=== PATIENT | female | born 1990 | race Caucasian/White ===

== ENCOUNTER 2020-09-04 07:10 | Observation (INO) ==
--- NOTE | 2020-09-01 14:18 | Anesthesiology Consultation ---
Date of Service September 01, 2020 Assessment & Plan (1) Encounter for pre-operative examination: ADDRESS PATIENT "PATRIC". 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 Patient instructed that they and their household members must follow strict social distancing guidelines, wear a mask in public and avoid travel/events/gatherings for 14 days prior to surgery. Preoperative COVID19 testing completed 08/31 at [facility], results NEGATIVE. Patient made aware to self-isolate as much as possible between COVID testing and surgery. HCG AM DOS. Chart Review Chart Review: Acceptable Risk for Surgery and Patient seen in Pre Admission Testing History Surgery Operation Date: 09/04/20 07:30 Proposed Procedures p Laparoscopic Total Hysterectomy with Bilateral Salpingo-Oophorectomy - Nagi Maurice MD Height/Weight Height: 5 ft 8.5 in Weight: 136.078 kg Allergies Allergy/AdvReac Type Severity Reaction Status Date / Time No Known Allergies Allergy Verified 09/01/20 12:58 Medications Home Medications Medication Instructions Recorded Confirmed Last Taken Cypionate 0.4 ml IM WK 07/07/20 09/01/20 Unknown escitalopram oxalate 10 mg PO PM 07/07/20 09/01/20 Unknown lisinopril 5 mg PO PM 07/07/20 09/01/20 Unknown Past Medical History Medical History Anxiety and depression Hypertension Morbid obesity Transgender USES HE/HIS/HIM PRONOUNS, ADDRESS PATIENT PATRIC. Exercise / Class Metabolic Activity II 4-5 Yardwork/Stairs/Walk up hill Past Family History Family History Grandmother Leukemia Other Heart disease Past Surgical History Surgical History History of tooth extraction Past Anesthesia History No Family Hx of Anesthesia Complications PATIENT IS GA NAIVE. History of PONV No Hx of Motion Sickness Social History Smoking Status: Never smoker Hx Alcohol Use: No Hx Substance Use: No substance use type: does not use Review of Systems Pt denies any recent chest pain, shortness of breath, palpitations, cough, fever, URI, or uncontrolled acid reflux. Physical Exam Vital Signs BP: 141/95 (pt is visibly very anxious) P: 93bpm SPO2: 97% RA T: 97.9 F R: 16 Constitutional + morbidly obese ENMT Mouth: no dental restorations, no chipped teeth and no loose teeth Thyromental Distance: > or= 3.5 Finger Breadths Mallampati Class: II Neck + thick neck; neck extension not limited Respiratory normal respiratory effort, lungs clear to auscultation Cardiovascular RRR, no murmur, no edema Testing Laboratory Results 08/12/20 WBC: 9.68 H/H: 15.6/46.3 PLATELETS: 206 SODIUM: 139 POTASSIUM: 3.5 CHLORIDE: 107 CO2: 24 BUN: 12 CREATININE: 0.88 GLUCOSE: 119 TYPE AND SCREEN: O+, ab negative Electrocardiogram Date: 08/12/20 Findings: + NSR @ (89bpm)
[~2020-09-04 07:10] MED LIST: LACTATED RINGER'S 1,000 ML IV SCH; LR 15ML/HR IV SCH
--- NOTE | 2020-09-04 08:20 | History & Physical Bridge Note ---
Date of Service September 04, 2020 History & Physical Bridge Note I have examined the patient, reviewed the History & Physical and in the interval since the performance of the History & Physical I have noted the following changes of clinical significance: no changes noted
[2020-09-04] MEDS ORDERED: METHYLERGONOVINE MALEATE 0.2 MG/ML AMP ONE (08:54)
[2020-09-04] MEDS ORDERED: NEOSTIGMINE METHYLSULFATE 5 MG/5 ML SYR ONE (09:22)
[2020-09-04] MEDS ORDERED: GLYCOPYRROLATE 0.2 MG/ML VIAL ONE (09:22)
[2020-09-04] MEDS ORDERED: DEXAMETHASONE SOD INJ 4 MG/ML VIAL ONE (09:22)
[2020-09-04] MEDS ORDERED: ONDANSETRON INJ 2 MG/ML 2 ML VIAL ONE ×2 (09:22→12:06)
[2020-09-04] MEDS ORDERED: PROPOFOL IV EMULSION 10 MG/ML 20 ML VIAL IV ONE (09:22)
[2020-09-04] MEDS ORDERED: MIDAZOLAM HCL 1 MG/ML 2ML VIAL ONE (09:22)
[2020-09-04] MEDS ORDERED: LIDOCAINE HCL 2% 2 ML VIAL/AMP(20MG/ML) INFIL ONE (09:22)
[2020-09-04] MEDS ORDERED: fentaNYL citrate 100 MCG/2 ML VIAL ONE (09:23)
[2020-09-04] MEDS ORDERED: BUPIVACAINE 0.5 % 5 MG/1 ML MPF 30ML VIAL ONE (09:58)
[2020-09-04] MEDS ORDERED: ePHEDrine sulfate 50 MG/ML AMP IV PRN (10:24)
[2020-09-04] MEDS ORDERED: METOCLOPRAMIDE HCL INJ 5 MG/ML 2 ML VIAL IV PRN (10:24)
[2020-09-04] MEDS ORDERED: PROMETHAZINE HCL 12.5 MG in SODIUM CHLORIDE 0.9% 50 ML IV PRN (10:24)
[2020-09-04] MEDS ORDERED: ONDANSETRON INJ 2 MG/ML 2 ML VIAL IV PRN ×2 (10:24→13:30)
[2020-09-04] MEDS ORDERED: ATROPINE SULFATE 0.1 MG/ML 10ML SYR IV PRN (10:24)
[2020-09-04] MEDS ORDERED: fentaNYL citrate 100 MCG/2 ML VIAL IV PRN (10:24)
[2020-09-04] MEDS ORDERED: HYDROmorphone INJ 2 MG/ML SYR/VIAL IV PRN (10:24)
[2020-09-04] MEDS ORDERED: HYDROmorphone INJ 2 MG/ML SYR/VIAL ONE (10:26)
[2020-09-04] MEDS ORDERED: MINERAL OIL LIGHT 10 ML BTL ONE (11:15)
[2020-09-04] MEDS ORDERED: FLOSEAL HEMOSTATIC MATRIX 10ML TOP ONE (11:49)
[2020-09-04] MEDS ORDERED: METHYLENE BLUE 0.5% 10 ML VIAL ONE (12:05)
[2020-09-04] MEDS ORDERED: ROCURONIUM BROMIDE 10 MG/ML 5 ML VIAL IV ONE (12:06)
[2020-09-04] MEDS ORDERED: MAGNESIUM HYDROXIDE SUSP 30 ML UDC PO PRN (13:30)
[2020-09-04] MEDS ORDERED: LACTATED RINGER'S 1,000 ML IV SCH (13:30)
[2020-09-04] MEDS ORDERED: KETOROLAC 30 MG/ML VIAL IV PRN (13:30)
--- NOTE | 2020-09-04 13:35 | Anesthesiology Progress Note ---
Date of Service September 04, 2020 Anesthesia Post Procedure Vital Signs Vital Signs: Temp Pulse Resp BP Pulse Ox 09/04/20 13:25 81 14 153/76 H 95 09/04/20 13:15 76 14 168/91 H 95 09/04/20 13:08 36.4 C L 79 18 141/93 H 100 Transfer of Care Handoff Completed per policy Notes Mental Status: alert / awake / arousable and participated in evaluation Patient Amnestic to Procedure: Yes Nausea / Vomiting: adequately controlled Pain: adequately controlled Airway Patency, RR, SpO2: stable & adequate BP & HR: stable & adequate Hydration State: stable & adequate Anesthetic Complications: no major complications apparent
[2020-09-04] MEDS: oxyCODONE/ACETAMINOPHEN 5mg/325mg TAB PO PRN ×2 (18:27→23:15)
[2020-09-04] MEDS: IBUPROFEN 600 MG TAB PO PRN ×2 (18:27→23:15)
--- NOTE | 2020-09-05 04:31 | Operative Report (OR) ---
DATE OF OPERATION: 09/04/2020 INDICATION FOR SURGERY: 1. Gender dysphoria. 2. Menorrhagia, unresponsive to medical therapy. SURGEON: Nagi Maurice MD DIAL PRINTER: Paulette Razo. ATTESTATION FOR DIAL PRINTER: Cloth Burler was necessary for retraction, manipulation of instruments, and in order to provide better visualization for a safe surgery. ANESTHESIA: General. PROCEDURES: 1. Total laparoscopic hysterectomy. 2. Bilateral salpingo-oophorectomy. 3. Cystoscopy. ESTIMATED BLOOD LOSS: 20 mL. INTRAVENOUS FLUIDS: 1500 mL. URINE OUTPUT: 200 mL clear urine at end of procedure. SPECIMEN: Uterus, left and right tube, and ovary. COMPLICATIONS: None. DISPOSITION: Stable to recovery room. DESCRIPTION OF PROCEDURE: The patient was taken to the operating room where she was prepped and draped in normal sterile fashion after timeout was called. A heavy weighted speculum was placed in the vagina. A uterine manipulator was placed into the uterus to help manipulate the uterus during laparoscopy. Diaz catheter was placed into the bladder. Attention was paid to the abdominal part of the procedure where an incision was made about 4 cm above the umbilicus with a scalpel. Incision was carried down to the fascia. Fascia was grabbed with 2 Kochers. A Veress needle was introduced into the abdomen at a 45-degree angle while tenting up the abdomen. Once inside the abdomen, a water drop test was performed to confirm placement of the Veress needle. Abdomen was insufflated with 4 liters of CO2. The Veress needle was removed. A nonbladed trocar attached to a 30-degree laparoscope was introduced into the abdomen under direct visualization. Once inside the abdomen, placement was confirmed. Three additional ports were introduced, two on the left and a third on the right. These were all introduced under direct visualization. Once inside the abdomen, the abdominal findings were as follows: Uterus is about 6-8 weeks' size. The left and right fallopian tubes and ovaries were identified. The bladder; the ureter and uterosacral; bowels, cecum; and appendix, all examined, they all appeared grossly normal. The 5 mm LigaSure was passed through the left accessory port. The left fallopian tube was identified and grabbed 4 cm from the cornua of the uterus with the LigaSure and transected. The utero-ovarian ligament and medial ovarian pedicles were all transected on that side. The dissection was followed to the left anterior leaf of the broad ligament. Same procedure was performed on the contralateral side. The anterior broad ligament dissection was carried to the mid section of the vesicouterine peritoneum over the bladder using the Harmonic scalpel. Same procedure was carried out on the contralateral side. The posterior broad ligament peritoneum was carefully dissected also from both sides over the uterosacral arch in order to displace the ureters laterally. Using traction and countertraction, a [place] retractor and irrigation probe was used to further dissect the bladder off the lower segment of the uterus. Bladder pillars and pubovesical fascia was dissected as well. The Harmonic scalpel was used to obtain hemostasis when needed. Uterine manipulator was now palpated over the vaginal tissue. The right uterine pedicle was skeletonized and coagulated with LigaSure. There was good hemostasis. Same procedure was performed on the contralateral side. Cardinal ligaments were transected on both sides. Once again, hemostasis was obtained. Colpotomy was now performed using the Harmonic scalpel from both sides. The uterus was removed through the vagina while still attached to the uterine manipulator. The bulb in the vagina was insufflated to obtain pneumoperitoneum. With a grasper, the remaining section of the left tube and ovary were positioned anteromedially and transected with the LigaSure. Same procedure was performed on contralateral side. Both specimens were also removed through the vagina and sent with the previous specimen to pathology. Copious amount of irrigation used to irrigate the pelvis at this time. There was good hemostasis and an EndoStitch closure device was passed through the 10 mm port on the left and using the [place] grasper for traction, the colpotomy closure was performed. The uterosacral ligaments were incorporated into the closure in order to decrease the risks of prolapse. Lapra-Ty were used with the EndoStitch. There was good hemostasis. The laparoscopic instruments were then removed through the trocars. The trocars were also removed at this time. The 10 mm port was closed by first inserting a Rambo-Jose instrument which enabled the peritoneum and fascia to be closed. The supraumbilical 10 mm incision for the camera was also closed in 2 layers. Fascia was grabbed and closed with Vicryl stitch. The rest of the incisions were closed with 4-0 Monocryl. Skin was closed with 4-0 Monocryl as well. Attention was paid back to the vaginal part of the procedure as well as the cystoscopy part. A 30-degree scope was passed through the urethra into the bladder. The bladder appeared grossly normal. There were no sutures from the abdominal surgeries seen in the bladder. There was a positive bubble sign seen in the bladder. The bladder appeared clear. The patient had been given indigo carmine and we could see the dye jetting smoothly and easily through both ureteral openings. The scope was then removed. All other instruments were removed from the vagina, including sponges, needles, and retractors. The patient was sent to recovery in stable condition. I attest to the content of the Intraoperative Record and any orders documented therein. Any exception s are noted below.
[2020-09-05] MEDS: oxyCODONE/ACETAMINOPHEN 5mg/325mg TAB PO PRN ×2 (04:35→09:58)
[2020-09-05] MEDS: IBUPROFEN 600 MG TAB PO PRN ×2 (04:35→09:57)
[2020-09-05 06:15] LABS: Basophils # (auto) 0.01 K/uL (0-0.2); Basophils % (auto) 0.1 %; Hematocrit (blood only) 47.4 % (37-47); Hemoglobin 15.8 g/dL (12.0-16.0); Immature Granulocytes # (auto) 0.04 K/uL (0.00-0.02); Immature Granulocytes % (auto) 0.3 %; Lymphocytes # (auto) 1.06 K/uL (1.2-3.4); Lymphocytes % (auto) 7.7 %; Mean Corpuscular Hemoglobin 29.8 pg (25-34); Mean Corpuscular Hgb Conc 33.3 g/dL (32-36); Mean Corpuscular Volume 89.3 fL (80-100); Mean Platelet Volume 11.4 fL (7.4-10.4); Monocytes # (auto) 0.99 K/uL (0.11-0.59); Monocytes % (auto) 7.2 %; Neutrophils # (auto) 11.61 K/uL (1.4-6.5); Neutrophils % (auto) 84.7 %; Platelet Count 243 K/uL (130-400); RDW Coefficient of Variation 13.2 % (11.5-14.5); Red Blood Count 5.31 M/uL (4.2-5.4); White Blood Count 13.71 K/uL (4.8-10.8)
[2020-09-05 06:55] LABS: BUN Creatinine Ratio 13.7 (10-20); Calcium 8.6 mg/dl (8.5-10.1); Creatinine Clr Calc Pharmacy 137.9 ml/min; Est GFR (African American) 89.9; Est GFR (Non-African American) 77.6; Potassium 4.3 mmol/L (3.5-5.1)
--- NOTE | 2020-09-05 09:17 | Obstetrical Progress Note ---
Date of Service September 05, 2020 Assessment & Plan (1) S/P laparoscopic hysterectomy: Day #1 pt doing well d/c with instructions Subjective Review of Systems All systems reviewed & are unremarkable except as noted in HPI & below Physical Exam Constitutional WD/WN, vitals as above Eyes PERRL, conjunctivae normal, anicteric sclerae ENMT external ear and nose normal, oropharynx normal Neck trachea midline, no thyromegaly Respiratory normal respiratory effort, lungs clear to auscultation Cardiovascular RRR, no murmur, no edema Chest (Breasts) normal inspection/palpation of breasts Gastrointestinal (Abdomen) normal bowel sounds, soft, nontender, no hepatosplenomegaly Musculoskeletal no cyanosis or clubbing, extremities motor strength 5/5 Skin + incision (Incision clean,dry and intact) Neurologic patellar DTR's 2+ bilat, sensation intact Psychiatric A+Ox3, euthymic affect Genitourinary no vaginal lesions, no adnexal mass Lymphatic no cervical or axillary lymphadenopathy Results & Data ([facility]) Vital Signs (Past 12 Hours) Vital Signs Temp Pulse Resp BP Pulse Ox 09/05/20 08:00 36.7 C 93 H 18 114/63 95 09/05/20 04:30 36.8 C 77 16 115/71 96 09/04/20 23:10 36.8 C 95 H 16 122/70 94
--- NOTE | 2020-09-05 10:34 | Discharge Summary (DS) ---
CHIEF COMPLAINT: Menorrhagia, unresponsive to medical therapy. HISTORY OF PRESENT ILLNESS: This is a 30-year-old G0, status post gender dysphoria with menorrhagia, unresponsive to medical therapy. The patient underwent a total laparoscopic hysterectomy, bilateral salpingo-oophorectomy. Surgery was otherwise unremarkable. Details of surgery is in the surgical note. This morning, the patient is doing well and has been discharged home in stable condition. PAST MEDICAL HISTORY: 1. Gender dysphoria. 2. Morbid obesity. 3. Hypertension. 4. Anxiety and depression. PAST SURGICAL HISTORY: History of dental procedure. FAMILY HISTORY: Noncontributory. ALLERGIES: No known drug allergies. REVIEW OF SYSTEMS: Negative except as dictated in the HPI. PHYSICAL EXAMINATION: VITAL SIGNS: Blood pressure 114/63, pulse is 93, temperature is 36.7. Hemoglobin this morning is 15.8, hematocrit is 47.4. HEART: S1, S2, regular rhythm and rate. LUNGS: Clear to auscultation bilaterally. ABDOMEN: Nontender, nondistended. Incision clean, dry and intact. EXTREMITIES: No cyanosis, clubbing or edema. CONDITION ON DISCHARGE: Stable. OPERATION: Total laparoscopic hysterectomy with bilateral salpingo-oophorectomy. DISCHARGE DIAGNOSIS: Total laparoscopic hysterectomy with bilateral salpingo-oophorectomy postop. PLAN ON DISCHARGE: The patient is discharged home with instructions regarding activity, diet and followup appointment.
== END 2020-09-05 10:55 | disposition home or self-care (01) ==
LOC: 4N 07:10 → ASU 07:10